=== PATIENT | female | born 1945 | race Caucasian/White ===

== ENCOUNTER 2016-05-31 06:26 | Day surgery (SDC) | payer MEDICARE, SELFPAY ==
[~2016-05-31 06:26] MED LIST: ASAB PO; HCTZ25B PO; MEDROLPAK4 PO; MINIVELLE1 EACH TOP; MIRALAXPKT PO; MULTIPLE VIT PO; NEUR300 PO; NORCO1 TA2 PO; PCET PO; PERCOCET 10/3251 TAB PO; PERCOCET1 TA4 PO; PRIN10 PO; ULTRAM50 PO; V2 PO; V5 PO; VITAMIN D1000 UNI1 PO; VITE PO; VIVELLE-DOT0.05 MG TOP; XARELTO10 MG PO; ZANTAC150 MG PO; ZOCOR10 PO; ZOCOR40 PO; ZOFRAN4 PO
== END 2016-05-31 09:16 | disposition home or self-care (01) ==
LOC: SDC 06:26
PROVIDERS: Orthopaedic Surgery
PROC: 3E0R3BZ Introduction of Anesthetic Agent into Spinal Canal, Percutaneous Approach (ICD-10-PCS; 2016-05-31)
PROC: 3E0R33Z Introduction of Anti-inflammatory into Spinal Canal, Percutaneous Approach (ICD-10-PCS; 2016-05-31)
PROC: 3E0R33Z Introduction of Anti-inflammatory into Spinal Canal, Percutaneous Approach (ICD-10-PCS; principal; 2016-05-31 08:45)
DX: M54.16 Radiculopathy, lumbar region (principal); F41.9 Anxiety disorder, unspecified; G43.909 Migraine, unspecified, not intractable, without status migrainosus; E78.00 Pure hypercholesterolemia, unspecified; I10 Essential (primary) hypertension; M19.90 Unspecified osteoarthritis, unspecified site; Z98.1 Arthrodesis status; Z96.653 Presence of artificial knee joint, bilateral; K21.9 Gastro-esophageal reflux disease without esophagitis; Z90.710 Acquired absence of both cervix and uterus; Z88.2 Allergy status to sulfonamides; Z86.73 Personal history of transient ischemic attack (TIA), and cerebral infarction without residual deficits; Z98.890 Other specified postprocedural states; Z88.0 Allergy status to penicillin
CPT/HCPCS: J1040; J2250; J3010; Q9967

== ENCOUNTER 2016-06-14 07:53 | Day surgery (SDC) | payer MEDICARE, SELFPAY | END 2016-06-14 17:13 | disposition home or self-care (01) | LOC: SDC 07:53 | PROVIDERS: Orthopaedic Surgery | PROC: 3E0R3BZ Introduction of Anesthetic Agent into Spinal Canal, Percutaneous Approach (ICD-10-PCS; 2016-06-14) | PROC: 3E0R33Z Introduction of Anti-inflammatory into Spinal Canal, Percutaneous Approach (ICD-10-PCS; principal; 2016-06-14 07:30) | DX: M54.16 Radiculopathy, lumbar region (principal); M54.5 Low back pain; E78.00 Pure hypercholesterolemia, unspecified; I10 Essential (primary) hypertension; G47.33 Obstructive sleep apnea (adult) (pediatric); M19.90 Unspecified osteoarthritis, unspecified site; F41.9 Anxiety disorder, unspecified; K21.9 Gastro-esophageal reflux disease without esophagitis; K62.3 Rectal prolapse; Z86.73 Personal history of transient ischemic attack (TIA), and cerebral infarction without residual deficits; Z88.2 Allergy status to sulfonamides; Z88.0 Allergy status to penicillin; Z98.1 Arthrodesis status; Z90.710 Acquired absence of both cervix and uterus; Z98.890 Other specified postprocedural states; Z79.82 Long term (current) use of aspirin; Z79.899 Other long term (current) drug therapy; Z79.891 Long term (current) use of opiate analgesic | CPT/HCPCS: J1040; J2250; J3010; Q9967 ==